=== PATIENT | male | born 1975 | race Caucasian/White ===

== ENCOUNTER 2018-02-17 11:35 | Emergency (ER) | payer SELFPAY ==
[~2018-02-17] VITALS: Ht 188 cm; Wt 90.0 kg
[2018-02-17] MEDS ORDERED: MEDROL DOSEPAK4 MG PO (13:03)
[2018-02-17] MEDS ORDERED: ZITHROMAX Z-PA250 MG PO (13:03)
[2018-02-17 13:12] VITALS: BP 146/102
== END 2018-02-17 13:12 | disposition home or self-care (01) ==
LOC: EME 11:35
DX: J06.9 Acute upper respiratory infection, unspecified (principal); J02.9 Acute pharyngitis, unspecified; F17.200 Nicotine dependence, unspecified, uncomplicated
CPT/HCPCS: 99281; 99282